=== PATIENT | female | born 1935 | race Hispanic/Latino ===

== ENCOUNTER → 2018-05-08 | Day surgery (SDC) | payer MEDICARE ==
[2018-05-02 16:47] LABS: BASOPHILS % 0.6 % (0.0-1.0); EOSINOPHILS # (AUTO) 0.2 (0.0-0.4); EOSINOPHILS % 2.8 % (0.0-6.0); HEMATOCRIT 40.6 % (34.2-44.1); LYMPHOCYTES # (AUTO) 2.4 (1.0-3.2); LYMPHOCYTES % 35.6 % (18.0-39.1); MEAN CORPUSCULAR HEMOGLOBIN 31.1 pg (28-32); MEAN CORPUSCULAR VOLUME 97.1 fL (81-99); MONOCYTES # (AUTO) 0.8 (0.2-0.8); MONOCYTES % 11.4 % (4.4-11.3); NEUTROPHILS # (AUTO) 3.4 (2.1-6.9); NEUTROPHILS % 49.5 % (38.7-80.0); PLATELET COUNT 245 x10e3/uL (140-360); RED BLOOD COUNT 4.18 x10e6/uL (3.6-5.1); RED CELL DISTRIBUTION WIDTH 13.5 % (11.7-14.4)
--- NOTE | 2018-05-02 16:55 | Diagnostic Imaging Report ---
PROCEDURE: X-RAY CHEST, TWO VIEWS COMPARISON: None. INDICATIONS: PREOP FOR FOOT FINDINGS: LUNGS: Diffusely hyperinflated. No mass or infiltrate. PLEURA: No effusions or pneumothorax. HEART \T\ MEDIASTINUM: Large hiatal hernia containing air. The heart is within normal size-limits. The aorta is ectatic with calcifications in the arch. BONES \T\ SOFT TISSUES: No acute findings. CONCLUSION: No acute thoracic abnormality. Large hiatal hernia. Dictated by: Danielle Stanley M.D. on 05/02/2018 at 17:01 Electronically approved by: Danielle Stanley M.D. on 05/02/2018 at 17:01
[~2018-05-08] MED LIST: ALENDRONATE SOD70 MG PO; BUPIVACAINE HCL 0.5% INJ 30 ML VIAL INJ ONE; CEFAZOLIN SOD 1 GM VIAL ONE; DEXAMETHASONE SOD PHOS INJ 4 MG/ML VIAL ONE; DIFLUCAN150 MG; ENALAPRIL; KETOROLAC TROMETHAMINE 30 MG/ML VIAL ONE; LEVOTHYROXINE; LEVOTHYROXINE50 MCG PO; LIDOCAINE HCL 2% LOCAL INJ 5 ML SDV VIAL INJ ONE; METOPROLOL SUCC25 MG PO; NEOSTIGMINE 1 MG/ML 10ML VIAL ONE; ONDANSETRON HCL INJ 2 MG/ML VIAL ONE; PROPOFOL IV EMULSION 10 MG/ML 20 ML VIAL ONE; SEVOFLURANE INHAL SOLN 250 ML PEN BTL ONE; SIMVASTATIN; SIMVASTATIN20 MG PO; VASOTEC10 M1 PO
--- NOTE | 2018-05-08 08:34 | Operative Report ---
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 POSTOPERATIVE DIAGNOSES 1. 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 2. 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 PROCEDURES 1. Excision of neuroma of 2nd interspace. 2. Application of human allograft to the remainder of the proximal aspect of the neuroma (stump neuroma) and hypertrophic tissue. COMPLICATIONS: None. CONDITION: Stable. ANESTHESIA: General. MATERIALS: Allograft, 2 x 2, reference [id number], lot [id number], September 24, 2019, is the expiration date. PROCEDURE IN DETAIL: Under mild sedation, the patient was brought to the operating table in the supine position. Following IV sedation, anesthesia was obtained by general anesthetic. At this point, the right foot was scrubbed, prepped and draped in the usual aseptic manner. The pneumatic thigh tourniquet was inflated to 350 mmHg. The leg was lowered to the table. Attention was then directed to the dorsal aspect of the right foot where an incision was made overlying the 2nd metatarsal space. The incision was deepened down to the level of the neuroma. After the intermetatarsal ligament was transected, the neuroma was visualized. It was then transected proximal medial, distal lateral, proximal lateral, distal through and through. It was passed from the operating table and sent for pathology. At this point, the area was then flushed with a copious amount of normal sterile saline solution. A 2 x 2 allograft wrap was then applied to the proximal aspect of the nerve in order to prevent stump neuroma to prevent adhesions to the area and chronic pain, and to help with the neuritis. The incisions were closed closing the deepest layer with 4-0 Vicryl and then 4-0 nylon. Injection was given of 10 mL of 0.5% Marcaine plain. Clean dressing was applied. Adaptic, 4 x 4's, Kerlix, and an Valerio bandage. Tourniquet was deflated. There was noted to be hyperemic response to all the digits. The patient tolerated the procedure and anesthesia well without complications. Was transferred to the recovery room with vital signs stable and vascular status intact to both feet. The patient will be discharged home when she meets criteria. She was given instructions to be nonweightbearing and to ice and elevate the foot while at rest. Follow up with me in the office, and to call the office for any questions or concerns, or any problems arise. Job#: [id number] MALINI
[2018-05-08 08:45] VITALS: BP 140/79
== END | disposition home or self-care (01) ==
LOC: OR 05:04
PROVIDERS: ATTEND Podiatrist Foot & Ankle Surgery
DX: G57.61 Lesion of plantar nerve, right lower limb (principal); I10 Essential (primary) hypertension; E03.9 Hypothyroidism, unspecified; Z01.810 Encounter for preprocedural cardiovascular examination; Z01.812 Encounter for preprocedural laboratory examination; Z01.818 Encounter for other preprocedural examination; Z86.73 Personal history of transient ischemic attack (TIA), and cerebral infarction without residual deficits; Z87.891 Personal history of nicotine dependence
CPT/HCPCS: 28080; 36415; 71046; 85025; 88304; 93005; J0690; J1100; J1885; J2001; J2405; J2710; Q4150

== ENCOUNTER → 2020-03-17 | Outpatient (CLI) | payer MEDICARE ==
[~2020-03-17] MED LIST changes: -BUPIVACAINE HCL 0.5% INJ 30 ML VIAL INJ ONE; -CEFAZOLIN SOD 1 GM VIAL ONE; -DEXAMETHASONE SOD PHOS INJ 4 MG/ML VIAL ONE; -KETOROLAC TROMETHAMINE 30 MG/ML VIAL ONE; -LIDOCAINE HCL 2% LOCAL INJ 5 ML SDV VIAL INJ ONE; -NEOSTIGMINE 1 MG/ML 10ML VIAL ONE; -ONDANSETRON HCL INJ 2 MG/ML VIAL ONE; -PROPOFOL IV EMULSION 10 MG/ML 20 ML VIAL ONE; -SEVOFLURANE INHAL SOLN 250 ML PEN BTL ONE
--- NOTE | 2020-03-17 15:35 | Diagnostic Imaging Report ---
EXAMINATION: CHEST 2 VIEWS INDICATION: Upper back pain COMPARISON: None FINDINGS: LINES/TUBES:None LUNGS:The lungs are well-inflated. No focal consolidation or pulmonary edema. PLEURA:No pleural effusion or pneumothorax. MEDIASTINUM:The cardiomediastinal silhouette appears normal in size and shape. Atherosclerotic calcifications of the thoracic aorta. Large hiatal hernia. BONES/SOFT TISSUES:No acute osseous injury. ABDOMEN:No free air under the diaphragm. IMPRESSION: No focal pneumonia or pulmonary edema. Large hiatal hernia. Signed by: Clare Burch MD on 03/17/2020 3:31 PM
--- NOTE | 2020-03-17 15:36 | Diagnostic Imaging Report ---
EXAMINATION: THORACIC SPINE 2VW INDICATION: Upper back pain COMPARISON: None FINDINGS: AP and lateral views of the thoracic spine demonstrate no acute fracture. Vertebral body heights are maintained. Mild multilevel degenerative changes with small osteophyte formation. The visualized portions of the lungs are clear. Large hiatal hernia. IMPRESSION: No compression fracture. Mild multilevel thoracic spine degenerative changes. Signed by: Clare Burch MD on 03/17/2020 3:33 PM
--- NOTE | 2020-03-17 15:45 | Diagnostic Imaging Report ---
EXAMINATION: SHOULDER LEFT COMPLETE INDICATION: Left shoulder pain COMPARISON: None FINDINGS: Internal and external rotation and Y view radiographs of the left shoulder demonstrate no acute fracture or dislocation. Alignment is anatomic. Mild acromioclavicular joint degenerative changes. The partially visualized left lung is clear. Atherosclerotic aortic calcifications. Soft tissues appear unremarkable. IMPRESSION: No acute osseous injury of the left shoulder. Signed by: Clare Burch MD on 03/17/2020 3:42 PM
== END ==
LOC: RAD 14:25
PROVIDERS: ATTEND Internal Medicine
DX: M54.6 Pain in thoracic spine (principal); M25.512 Pain in left shoulder
CPT/HCPCS: 71046; 72070

== ENCOUNTER 2020-07-01 14:07 | Observation (INO) | payer MEDICARE ==
[~2020-07-01] VITALS: Ht 157.5 cm; Wt 78.0 kg
[2020-07-01] MEDS ORDERED: ASPIRIN 81 MG CHEW TAB PO ONE (14:45)
--- NOTE | 2020-07-01 14:47 | Emergency Department Note ---
History of Present Illnes History of Present Illness Chief Complaint: General Medicine Complaints History of Present Illness This is a 84 year old female . 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 Any updates have been documented here. Past Medical History Recent Fever: No Clinical Suspicion of Infectio: No New/Unexplained Change in Ment: No Past Medical History: Hypertension, Hypothyroidism, Anemia Other Medical History: HIGH CHOLESTEROL Past Surgical History: Hysterectomy Other Surgery: knee repair ORIF of right arm Social History Smoking Cessation: Never Smoker Alcohol Use: None Any Illegal Drug Use: No TB Exposure/Symptoms: No Physically hurt or threatened: No Family History Family history of heart diseas: No Other Last Tetanus: UNKNOWN Any Pre-Existing Lines (PICC,: No Review of Systems Review of Systems Constitutional: Reports no symptoms EENTM: Reports no symptoms Cardiovascular: Reports no symptoms Respiratory: Reports no symptoms Gastrointestinal: Reports no symptoms Genitourinary: Reports no symptoms Musculoskeletal: Reports no symptoms, Reports back pain (upper back pain intermittent) Integumentary: Reports no symptoms Neurological: Reports no symptoms Psychological: Reports no symptoms Endocrine: Reports no symptoms Hematological/Lymphatic: Reports no symptoms Physical Exam Related Data Allergies: Coded Allergies: No Known Allergies (Unverified , 05/03/18) Triage Vital Signs Vital Signs Date Time Temp Pulse Resp B/P (MAP) Pulse Ox O2 Delivery O2 Flow Rate FiO2 07/01/20 14:32 98.0 77 18 158/75 98 Room Air Vital signs reviewed: Yes Physical Exam CONSTITUTIONAL Constitutional: Present well-developed, Present well-nourished HENT HENT: Present normocephalic, Present atraumatic, Present oropharynx clear/moist, Present nose normal HENT L/R: Present left ext ear normal, Present right ext ear normal EYES Eyes: Reports PERRL, Reports conjunctivae normal NECK Neck: Present ROM normal PULMONARY Pulmonary: Present effort normal, Present breath sounds normal; Absent respiratory distress, Absent rales, Absent rhonchi, Absent chest tenderness, Absent other CARDIOVASCULAR Cardiovascular: Present regular rhythm, Present heart sounds normal, Present capillary refill normal, Present normal rate GASTROINTESTINAL Abdominal: Present soft, Present nontender, Present bowel sounds normal GENITOURINARY Genitourinary: Present exam deferred SKIN Skin: Present warm, Present dry MUSCULOSKELETAL Musculoskeletal: Present ROM normal, Present other (c/o intemrittent upper back pain btw shuldr blades x 4 days ); Absent edema, Absent tenderness NEUROLOGICAL Neurological: Present alert, Present oriented x 3, Present no gross motor or sensory deficits PSYCHOLOGICAL Psychological: Present mood/affect normal, Present judgement normal Results Laboratory Laboratory Laboratory Tests Test 07/01/20 17:23 07/01/20 14:56 07/01/20 14:48 Urine Color Yellow (YELLOW) Urine Clarity Sl cloudy (CLEAR) Urine pH 6.5 (5 - 7) Urine Specific [place] 1.025 (1.010-1.025) Urine Protein Negative (NEGATIVE) Urine Glucose (UA) Negative (NEGATIVE) Urine Ketones Negative (NEGATIVE) Urine Blood Negative (NEGATIVE) Urine Nitrite Negative (NEGATIVE) Urine Bilirubin Negative (NEGATIVE) Urine Urobilinogen 0.2 mg/dL (0.2 - 1) Urine Leukocyte Esterase Small (NEGATIVE) Urine RBC None /HPF (0-5) Urine WBC 6-10 /HPF (0-5) Urine Epithelial Cells Few /LPF (NONE) Urine Bacteria Moderate /HPF (NONE) White Blood Count 6.76 x10e3/uL (4.8-10.8) Red Blood Count 3.57 x10e6/uL (3.6-5.1) Hemoglobin 10.8 g/dL (12.0-16.0) Hematocrit 36.5 % (34.2-44.1) Mean Corpuscular Volume 102.2 fL (81-99) Mean Corpuscular Hemoglobin 30.3 pg (28-32) Mean Corpuscular Hemoglobin Concent 29.6 g/dL (31-35) Red Cell Distribution Width 14.8 % (11.7-14.4) Platelet Count 336 x10e3/uL (140-360) Neutrophils (%) (Auto) 66.2 % (38.7-80.0) Lymphocytes (%) (Auto) 20.9 % (18.0-39.1) Monocytes (%) (Auto) 9.0 % (4.4-11.3) Eosinophils (%) (Auto) 2.8 % (0.0-6.0) Basophils (%) (Auto) 0.7 % (0.0-1.0) Neutrophils # (Auto) 4.5 (2.1-6.9) Lymphocytes # (Auto) 1.4 (1.0-3.2) Monocytes # (Auto) 0.6 (0.2-0.8) Eosinophils # (Auto) 0.2 (0.0-0.4) Basophils # (Auto) 0.1 (0.0-0.1) Absolute Immature Granulocyte (auto 0.03 x10e3/uL (0-0.1) Prothrombin Time 12.9 seconds (11.9-14.5) Prothromb Time International Ratio 0.93 Activated Partial Thromboplast Time 27.0 seconds (23.8-35.5) D-Dimer Quantitative (PE/DVT) 0.75 ug/mLFEU (0.00-0.45) Sodium Level 144 mmol/L (136-145) Potassium Level 4.2 mmol/L (3.5-5.1) Chloride Level 106 mmol/L (98-107) Carbon Dioxide Level 29 mmol/L (22-29) Anion Gap 13.2 mmol/L (8-16) Blood Urea Nitrogen 9 mg/dL (7-26) Creatinine 0.77 mg/dL (0.57-1.11) Estimat Glomerular Filtration Rate > 60 ML/MIN (60-) BUN/Creatinine Ratio 12 (6-25) Glucose Level 129 mg/dL (74-118) Calcium Level 8.8 mg/dL (8.4-10.2) Total Bilirubin 0.1 mg/dL (0.2-1.2) Aspartate Amino Transf (AST/SGOT) 25 IU/L (5-34) Alanine Aminotransferase (ALT/SGPT) 25 IU/L (0-55) Alkaline Phosphatase 48 IU/L (40-150) Creatine Kinase 36 IU/L (29-168) Creatine Kinase MB 0.80 ng/mL (0-5.0) Troponin I 0.006 ng/mL (0-0.300) B-Type Natriuretic Peptide 135.7 pg/mL (0-100) Total Protein 6.8 g/dL (6.5-8.1) Albumin 3.9 g/dL (3.5-5.0) Globulin 2.9 g/dL (2.3-3.5) Albumin/Globulin Ratio 1.3 (0.8-2.0) Lipase 15 U/L (8-78) Lab results reviewed: Yes Imaging Imaging results reviewed: Yes Impressions EXAM: CT Chest WITH contrast 07/01/2020 4:41 PM INDICATION: Chest pain and dyspnea concerning for pulmonary embolism. COMPARISON: Same day chest radiographs. TECHNIQUE: Chest was scanned utilizing a multidetector helical scanner from the lung apex through the level of the adrenal glands with administration of IV contrast. Coronal and sagittal reformations were obtained. Routine protocol was performed. IV CONTRAST: 100 mL of Omnipaque 300 COMPLICATIONS: None RADIATION DOSE: Total DLP: 456 mGy*cm Estimated effective dose: (DLP x 0.014 x size factor) mSv CTDIvol has been reviewed. It is below the limits set by the Radiation Protocol Committee (RPC). Dose modulation, iterative reconstruction, and/or weight based adjustment of the mA/kV was utilized to reduce the radiation dose to as low as reasonably achievable. FINDINGS: LINES/ TUBES: None. VASCULAR: There are no filling defects within the pulmonary arteries to the segmental level. The pulmonary trunk has normal caliber measuring 2.5 cm. The ascending and descending aorta have normal enhancement and caliber measuring 3.2 cm and 2.5 cm, respectively. There is mild atherosclerotic calcification of the thoracic aortic arch extending into his branch vessels. LUNGS, PLEURA AND AIRWAYS: Evaluation of the lungs is limited by respiratory motion artifact. However, no focal consolidation, pleural effusion or pneumothorax. There is bibasilar atelectasis. HEART AND MEDIASTINUM: The thyroid gland is normal. No mediastinal, hilar or axillary lymphadenopathy. The heart is normal in size. There is no pericardial effusion. There are mild atherosclerotic calcifications in the aorta and coronary arteries. There is a large paraesophageal hiatal hernia with air-fluid levels. UPPER ABDOMEN: Unremarkable. BONES: There are degenerative changes in the thoracic spine. SOFT TISSUES: Unremarkable. IMPRESSION: 1. No evidence of pulmonary embolism to segmental level. 2. No acute intrathoracic abnormality identified. 3. Large paraesophageal hiatal hernia with air-fluid levels. 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 presented to ed c/o pleuritic upper back pain intermittent x 4 days denies cp sob n/v/d bonner dizziness - seen by pcp today had d-dimer done [facility] pos finding sent to ed for eval - lungs cta no reproducible anterior chest pain or upper back pain on exam - plan lab ekg cxr Reassessment Reassessment spoke w/ Dr Silver will admit obs tele Assessment & Plan Final Impression: (1) Upper back pain (2) Pleuritic pain Depart Disposition: ADMITTED Last Vital Signs Date Time Temp Pulse Resp B/P (MAP) Pulse Ox O2 Delivery O2 Flow Rate FiO2 07/01/20 14:32 98.0 77 18 158/75 98 Room Air Home Meds Reported Medications Alendronate Sodium (ALENDRONATE SODIUM) 70 Mg Tablet, 70 MG PO WEEKLY 05/08/18 Metoprolol Succinate (METOPROLOL SUCCINATE) 25 Mg Tab.er.24h, 25 MG PO BID 05/02/18 Simvastatin (SIMVASTATIN) 20 Mg Tablet, 20 MG PO 2100, EA 04/05/15 Levothyroxine Sodium (LEVOTHYROXINE SODIUM) 50 Mcg Tablet, 75 MCG PO DAILY, #30 TAB 04/05/15 ERIC SALAS MD Jul 01, 2020 14:47
--- OUTSIDE RECORDS SUMMARY | 2020-07-01 15:20 | XMS REPORT | Continuity of Care Document ---
Author Author Formerly [facility] t Organization [facility] Address [address] [place] [address] Phone Unavailable Care Team Providers Care Supervisor Case Loading Name Role Phone RAVINDRA MARTIN Unavailable DALE MORILLO Attphyluc Unavailable Payers Payer Name Policy Type Policy Number Effective Date Expiration Date S ource Problems This patient has no known problems. Allergies, Adverse Reactions, Alerts Allergy Name Allergy Type Status Severity Reaction(s) Onset Date Inacti ve Date Treating Clinician Comments Source No Known Allergies DA Active U 2019-08-01 00:00:00 [facility] CODEINE DA Active U 2009-02-04 00:00:00 [facility] No Known Contrast Allergies DA Active U 2009-02-04 00:00: 00 [facility] No Known Food Allergies DA Active U 2009-02-04 00:00:00 [facility] No Known Other Allergies DA Active U 2009-02-04 00:00:00 [facility] codeine DA Active U 2009-01-19 00:00:00 [facility] Medications This patient has no known medications. Procedures This patient has no known procedures. Results Test Description Test Time Test Comments Results Result Comments Source D-DIMER 2020-07-01 13:37:00 Test Item D-DIMER (test code = DDIMER) 926.00 ng/mLFEU 0-500 HH Results called to DR.ANGELES Donohue V.[email or web address].[email or web address] 07/01/20 1337Critical results verified and read back by Nurse? YClinical Cut-off value for D-Dimer is 500 ng/mL FEU. Comment: The [employer] D-Dimer assay is intended for use asan aid in the diagnosis of venous thromboembolism (VTE)[deep vein thrombosis (DVT) or pulmonary embolism (PE)].The measurement of D-Dimer should not be used as an aid inthe diagnosis of VTE, in patient with: -Therapeutic dose anticoagulant therapy for >24 hours - Fibrinolytic therapy within previous 7 days -Trauma or surgery within previous 4 weeks -Disseminated malignancies -Aortic aneurysm -Sepsis, severe infections, pneumonia, severe skin infections -Liver cirrhosis - - XR CHEST 2 [id number] 12:10:[facility] 1935 Se [facility]: F [facility]: O St: REG Name: YASMINE RECINOS [facility] : 1935 Age/S: 84/F [address] [facility] Unit #: [id number] Loc: J[place]MY [place] [address] Phys: Undefined Provider Acct: [id number] Dis Date: Status: REG CLI PHONE #: [phone] Exam Date: 07/01/2020 1153 FAX #: [phone] Reason: R07.81 EXAMS: CPT CODE: [id number] XR CHEST 2 V 11215 HISTORY: R07.81. COMPARISON: CT chest from August 06, 2019 and chest x-ray from August 01, 2019. Location: [facility]. No acute infiltrates, effusion or congestion. Massive retrocardiac hiatal hernia with air-fluid level. Dependent changes. Cardiomegaly. DJD of the dorsal spine. IMPRESSION: No acute infiltrates, effusion or congestion. Massive retro cardiac hiatal hernia. at 1210 Reported and signed by: Estelle Naidu M.D. CC: Technologist: Lyndsey ZHOU(R) Trnscrd Date/Time/By: 07/01/2020 (7270) : By: [email or web address] Orig Print D/T: S: 07/01/2020 (5890) PAGE 1 Signed Report SHOULDER LEFT [id number] 15:41:00 [place] [address] Patient Name: YASMINE RECINOS I MR #: [id number] : 1935 Age/Sex: 84/F Req #: [id number] Adm Physician: Ordered by: RAVINDRA MARTIN MD Report #: [id number] Location: [facility] Room/Bed: Procedure: [id number] DX/SHOULDER LEFT COMPLETE Exam Date: 03/17/20 Exam Time: 1446 REPORT STATUS: Signed EXAMINATION: SHOULDER LEFT COMPLETE INDICATION: Left shoulder pain COMPARISON: None FINDINGS: Internal and external rotation and Y view radiog raphs of the left shoulder demonstrate no acute fracture or dislocation. Align ment is anatomic. Mild acromioclavicular joint degenerative changes. The parti ally visualized left lung is clear. Atherosclerotic aortic calcifications. Sof t tissues appear unremarkable. IMPRESSION: No acute osseous injury of the left shoulder. Signed by: Ephraim Echevarria MD on 03/17/2020 3:42 PM Dic tated By: EPHRAIM ECHEVARRIA MD 154 2 Transcribed By: DANIELLE on 03/17/20 1542 COPY TO: RAVINDRA MARTIN THORACIC SPINE [id number] 15:32:00 [place] [address] Patient Name: YASMINE RECINOS I MR #: [id number] : 1935 Age/Sex: 84/F Req #: [id number] Adm Physician: Ordered by: RAVINDRA MARTIN MD Report #: [id number] Location: [facility] Room/Bed: Procedure: [id number] DX/THORACIC SPINE 2VW Exam Date: 03/17/20 Exam Time: 1446 REPORT STATUS: Signed EXAMINATION: TH ORACIC SPINE 2VW INDICATION: Upper back pain COMPARISON: None FINDINGS: AP and lateral views of the thoracic spine demonstrate no a cute fracture. Vertebral body heights are maintained. Mild multilevel degenera tive changes with small osteophyte formation. The visualized portions of the l ungs are clear. Large hiatal hernia. IMPRESSION: No compression fractu re. Mild multilevel thoracic spine degenerative changes. Signed by: Ephraim Echevarria MD on 03/17/2020 3:33 PM Dictated By: EPHRAIM ECHEVARRIA MD Electronically Si gned By: EPHRAIM ECHEVARRIA MD on 03/17/20 1533 Transcribed By: DANIELLE on 03/17/20 153 3 COPY TO: RAVINDRA MARTIN MD CHEST 2 [id number] 15:30:00 [place] [address] Patient Name: YASMINE RECINOS I MR #: [id number] : 1935 Age/Sex: 84/F Req #: [id number] Adm Physician: Ordered by: RAVINDRA MARTIN MD R eport #: [id number] Location: [facility] Room /Bed: Procedure: [id number] DX/CHEST 2 V IEWS Exam Date: 03/17/20 Exam Time: 1446 REPORT STATUS: Signed EXAMINATION: CHEST 2 VIEWS INDICATION: Upper back pain COMPARISON: None FIND INGS: LINES/TUBES:None LUNGS:The lungs are well-inflated. No focal con solidation or pulmonary edema. PLEURA:No pleural effusion or pneumothorax. MEDIASTINUM:The cardiomediastinal silhouette appears normal in size and sha pe. Atherosclerotic calcifications of the thoracic aorta. Large hiatal hernia. BONES/SOFT TISSUES:No acute osseous injury. ABDOMEN:No free air under the diaphragm. IMPRESSION: No focal pneumonia or pulmonary edema. Large hiatal hernia. Signed by: Ephraim Echevarria MD on 03/17/2020 3:31 PM Dictated By: EPHRAIM ECHEVARRIA MD 153 Transcribed By: DANIELLE on 03/17/20 153 COPY TO: BETO MARTIN MD - CT CHEST W/O [id number] 10:19:00 Name: YASMINE RECINOS [facility] : 1935 Age/S: 84 / F [address] [place] [address] Bl Unit #: [id number] Loc: [place] [address] Phys: CedrickOsmaniriazleda [employer]ER Acct: [id number] Dis Date: Status: ADM IN PHONE #: [phone] Exam Date: 08/06/2019 08 FAX #: [phone] Reason: dyspnea EXAMS: CPT CODE: [id number] CT CHEST W/O CONTRAST 07387 PROCEDURE: CT CHEST WITHOUT CONTRAST INDICATION: Dyspnea COMPARISON: CXR 08/01/2019 TECHNIQUE: Noncontrasted helical imaging performed apices through the lung bases with multiplanar reconstructions. CT imaging performed at this location utilizes radiation dose optimization techniques which include one or more of the following: -Automated exposure control -Adjustment of the mA and/or kV according to patient size -Use of iterative reconstruction technique CT Radiation Dose DLP 261.30 mGy-cm LIMITATIONS: None. FINDINGS: LUNGS AND PLEURA: Partial compressive atelectasis of the lower lobes related to large hiatal hernia. There are a few bandlike opacities compatible with subsegmental atele ctasis or scarring. Calcified granuloma left upper lobe. There is a circ umscribed noncalcified nodule subpleural right middle lobe axial series 3 image 155, 4 mm diameter, compatible with benign finding. There are indis tinct subpleural reticular interstitial opacities bilateral lungs. No are as of honeycombing. No consolidation. The central airways are patent. No pleural abnormality. MEDIASTINUM: There is a large hiatal hernia containing majority of the gastric body. No evidence for obstructi on or inflammatory changes. The mediastinal contents are otherwise unrema rkable. No definite adenopathy. 1 cm level 4R paratracheal node borderli ne enlarged with visible fatty hilum. HEART: The cardiac deny mbers are unremarkable. Heavily calcified coronary arteries. No pericard ial effusion. VASCULAR STRUCTURES: Moderate atherosclerosis with s cattered calcified plaque thoracic aorta and branch vessels. No aneurysm. The superior vena cava is unremarkable. UPPER ABDOMEN: Riggins ited noncontrast survey of upper abdominal viscera is negative. MUSCULOSKELETAL: The skeleton is intact. PAGE 1 S igned Report (CONTINUED) Name: YASMINE RECINOS [facility] : 1935 Age/S: 84 / F [address] [place] [address] Blvd Unit #: [id number] Loc: JIMMY [place] [address] Phys: Kimberly Philip NP Acct: [id number] Dis Date: Status: ADM IN PHONE #: [phone] Exam Date: 08/06/2019 0811 FAX #: [phone] Reason: dyspnea EXAMS: CPT CODE: [id number] CT CHEST W/O CONTRAST 51065 <Continued> IMPRESSION: 1. Large hiatal hernia with partial compressive atelectasis of the lower lobes. 2. Mild subpleural interstitial opacities are nonspecific. Acute inflammation not excluded. No evidence for honeycombing. 3. Atherosclerosis. Heavily calcified coronary arteries. 4. Right middle lobe nodule, 4 mm diameter, configuration compatible with benign finding. In the absence of risk factors for malignancy, no routine follow-up required. If the patient has a history of smoking or other risk factor to increase their risk of malignancy, then a follow-up chest CT at 12 months is recommended. REFERENCE: Guidelines for Management of Incidental Pulmonary Nodules Detected on CT Images: From the Fleischner Society 2017. SL: TR-H at 1019 Reported and signed by: Will Chow M.D. CC: Candido Murguia MD; Ravindra Carbone MD; Kimberly Philip NP; Mal Ruiz MD Technologist:RT Melia(Gracie)(CT) CTDI: DLP: Trnscb Date/Time: 08/06/2019 (1019) [email or web address] Orig Print D/T: S: 08/06/2019 (1022) PAGE 2 Signed Report COMPREHENSIVE METABOLIC [id number] 07:33:00* Test Item Value Reference Range Interpretation Comments SODIUM (test code = NA) 136 mEq/L 134-147 N POTASSIUM (test code = K) 3.9 mEq/L 3.4-5.0 N CHLORIDE (test code = CL) 105 mEq/L 100-108 N CARBON DIOXIDE (test code = CO2) 26 mEq/L 21-33 N ANION GAP (test code = GAP) 9 0-20 N GLUCOSE (test code = GLU) 109 mg/dL 70-110 N BLOOD UREA NITROGEN (test code = BUN) 14 mg/dL 7-18 N GLOMERULAR FILTRATION RATE (test code = GFR) 68.7 70-80 L Units of measure = ml/min/1.73 m2 CREATININE (test code = CREAT) 0.8 mg/dL 0.6-1.3 N TOTAL PROTEIN (test code = PROT) 6.7 g/dL 6.4-8.2 N ALBUMIN (test code = ALB) 3.10 g/dL 3.4-5.0 L CALCIUM (test code = CA) 8.4 mg/dL 8.0-10.5 N BILIRUBIN TOTAL (test code = BILT) 0.7 MG/DL <1.5 N SGOT/AST (test code = AST) 12 IUnit/L 15-37 L SGPT/ALT (test code = ALT) 19 IUnit/L 15-65 N ALKALINE PHOSPHATASE TOTAL (test code = ALKP) 48 IUnit/L 20-125 N [id number] 07:33:00* Test Item Value Reference Range Interpretation Comments PHOSPHOROUS (test code = PHOS) 2.5 MG/DL 2.5-4.9 N [id number] 07:33:00* Test Item Value Reference Range Interpretation Comments MAGNESIUM (test code = MAG) 2.10 mg/dL 1.8-2.4 N CBC W/AUTO [id number] 07:23:00* Test Item Value Reference Range Interpretation Comments WHITE BLOOD CELL (test code = WBC) 9.26 x10 3/uL 4.5-11.0 N RED BLOOD CELL (test code = RBC) 4.33 x10 6/uL 3.54-5.02 N HEMOGLOBIN (test code = HGB) 10.1 g/dL 11.0-15.0 L HEMATOCRIT (test code = HCT) 34.0 % 33.0-45.0 N MEAN CELL VOLUME (test code = MCV) 78.5 fL 81.0-99.0 L MEAN CELL HGB (test code = MCH) 23.3 pg 27.0-33.0 L MEAN CELL HGB CONCETRATION (test code = MCHC) 29.7 g/dL 33.0-37. 0 L RED CELL DISTRIBUTION WIDTH CV (test code = RDW) 18.8 % 11.5- 14.5 H RED CELL DISTRIBUTION WIDTH SD (test code = RDW-SD) 53.5 fL 37 .0-54.0 N PLATELET COUNT (test code = PLT) 307 x10 3/uL 150-400 N MEAN PLATELET VOLUME (test code = MPV) 9.8 fL 7.0-9.0 H NEUTROPHIL % (test code = NT%) 68.6 % 56.0-77.0 N IMMATURE GRANULOCYTE % (test code = IG%) 0.6 % 0.0-2.0 N LYMPHOCYTE % (test code = LY%) 16.5 % 14.0-32.0 N MONOCYTE % (test code = MO%) 9.7 % 4.8-9.0 H EOSINOPHIL % (test code = EO%) 3.8 % 0.3-3.7 H BASOPHIL % (test code = BA%) 0.8 % 0.0-2.0 N NUCLEATED RBC % (test code = NRBC%) 0.2 % 0-0 H NEUTROPHIL # (test code = NT#) 6.35 x10 3/uL 2.0-7.6 N IMMATURE GRANULOCYTE # (test code = IG#) 0.06 x10 3/uL 0.00-0.03 H LYMPHOCYTE # (test code = LY#) 1.53 x10 3/uL 1.0-3.8 N MONOCYTE # (test code = MO#) 0.90 x10 3/uL 0.1-0.8 H EOSINOPHIL # (test code = EO#) 0.35 x10 3/uL 0.0-0.2 H BASOPHIL # (test code = BA#) 0.07 x10 3/uL 0.0-0.2 N NUCLEATED RBC # (test code = NRBC#) 0.02 x10 3/uL 0.0-0.1 N MANUAL DIFF REQUIRED (test code = MDIFF) NO CBC W/AUTO [id number] 18:33:00* Test Item Value Reference Range Interpretation Comments WHITE BLOOD CELL (test code = WBC) 10.36 x10 3/uL 4.5-11.0 N RED BLOOD CELL (test code = RBC) 3.78 x10 6/uL 3.54-5.02 N HEMOGLOBIN (test code = HGB) 8.7 g/dL 11.0-15.0 L HEMATOCRIT (test code = HCT) 30.6 % 33.0-45.0 L MEAN CELL VOLUME (test code = MCV) 81.0 fL 81.0-99.0 N MEAN CELL HGB (test code = MCH) 23.0 pg 27.0-33.0 L MEAN CELL HGB CONCETRATION (test code = MCHC) 28.4 g/dL 33.0-37. 0 L RED CELL DISTRIBUTION WIDTH CV (test code = RDW) 18.6 % 11.5- 14.5 H RED CELL DISTRIBUTION WIDTH SD (test code = RDW-SD) 56.0 fL 37 .0-54.0 H PLATELET COUNT (test code = PLT) 325 x10 3/uL 150-400 N MEAN PLATELET VOLUME (test code = MPV) 10.0 fL 7.0-9.0 H NEUTROPHIL % (test code = NT%) 67.5 % 56.0-77.0 N IMMATURE GRANULOCYTE % (test code = IG%) 0.7 % 0.0-2.0 N LYMPHOCYTE % (test code = LY%) 18.2 % 14.0-32.0 N MONOCYTE % (test code = MO%) 8.2 % 4.8-9.0 N EOSINOPHIL % (test code = EO%) 4.7 % 0.3-3.7 H BASOPHIL % (test code = BA%) 0.7 % 0.0-2.0 N NUCLEATED RBC % (test code = NRBC%) 0.2 % 0-0 H NEUTROPHIL # (test code = NT#) 6.99 x10 3/uL 2.0-7.6 N IMMATURE GRANULOCYTE # (test code = IG#) 0.07 x10 3/uL 0.00-0.03 H LYMPHOCYTE # (test code = LY#) 1.89 x10 3/uL 1.0-3.8 N MONOCYTE # (test code = MO#) 0.85 x10 3/uL 0.1-0.8 H EOSINOPHIL # (test code = EO#) 0.49 x10 3/uL 0.0-0.2 H BASOPHIL # (test code = BA#) 0.07 x10 3/uL 0.0-0.2 N NUCLEATED RBC # (test code = NRBC#) 0.02 x10 3/uL 0.0-0.1 N MANUAL DIFF REQUIRED (test code = MDIFF) NO - XR CHEST 2 [id number] 10:36:00 FAX: Candido Perez MD [phone] [facility]: St: PRE FAX: Ravindra Early [phone] Name: YASMINE RECINOS [facility] : 1935 Age/S: 84/F [address] [place] [address] Unit #: [id number] Loc: [place] [address] Phys: Candido Murguia MD Acct: [id number] Dis Date: Status: PRE SDC PHONE #: [phone] Exam Date: 08/01/2019 103 FAX #: [phone] Reason: PREOP LEFT HEART CATH EXAMS: CPT CODE: [id number] XR CHEST 2 V 48451 CLINICAL HISTORY: PREOP LEFT HEART CATH COMPARISON: NONE PA and lateral films of the chest demonstrate that heart size is normal. Lung bernstein are clear. No evidence of pneumonia or congestive failure is seen. There is no evidence of pleural effusion or pneumothorax. Regional skeletal structures demonstrate no acute abnormality. A large hiatus hernia with fluid level is present in the retrocardiac region. IMPRESSION: 1. No evidence of pneumonia or congestive failure is seen. 2. Large hiatus hernia. at 1036 Reported and signed by: Harish Kaiser M.D. CC: Candido Murguia MD; Ravindra Carbone MD Technologist: RT Michaela(Gracie) Trnscrd Date/Time/By: 08/01/2019 (1036) : By: Omar Orig Print D/T: S: 08/01/2019 (2964) PAGE 1 Signed Report BASIC METABOLIC [id number] 10:06:00* Test Item Value Reference Range Interpretation Comments SODIUM (test code = NA) 139 mEq/L 134-147 N POTASSIUM (test code = K) 4.0 mEq/L 3.4-5.0 N CHLORIDE (test code = CL) 108 mEq/L 100-108 N CARBON DIOXIDE (test code = CO2) 29 mEq/L 21-33 N ANION GAP (test code = GAP) 6 0-20 N GLUCOSE (test code = GLU) 83 mg/dL 70-110 N BLOOD UREA NITROGEN (test code = BUN) 18 mg/dL 7-18 N GLOMERULAR FILTRATION RATE (test code = GFR) 68.7 70-80 L Units of measure = ml/min/1.73 m2 CREATININE (test code = CREAT) 0.8 mg/dL 0.6-1.3 N CALCIUM (test code = CA) 8.5 mg/dL 8.0-10.5 N PROTHROMBIN [id number] 09:45:00* Test Item Value Reference Range Interpretation Comments PROTHROMBIN TIME PATIENT (test code = PTP) 12.0 SECONDS 9.3-12.9 N INTERNATIONAL NORMAL RATIO (test code = INR) 1.1 0.8-1.2 N TARGET INR BY INDICATION Indication INR1. Prophylaxis of venous thrombosis 2.0 - 3.0 (orthopedic surgery), Prophylaxis of venous thrombosis (other than high-risk surgery), Treatment of Deep Vein Thrombosis/Pulmonary Embolism, Prevention of systemic embolism - Tissue heart valves, Acute Myocardial Infarction (to prevent systemic embolism), Valvular heart disease, Atrial Fibrillation, Bileaflet mechanical valve in aortic position.2. Mechanical prosthetic valves (high risk), 2.5 - 3.5 Presence of Lupus Anticoagulant or Antiphospholipid Antibodies, Prevention of systemic embolism - Acute Myocardial Infarction (to prevent recurrent infarct). CBC W/AUTO [id number] 09:40:00* Test Item Value Reference Range Interpretation Comments WHITE BLOOD CELL (test code = WBC) 9.43 x10 3/uL 4.5-11.0 N RED BLOOD CELL (test code = RBC) 3.14 x10 6/uL 3.54-5.02 L HEMOGLOBIN (test code = HGB) 6.8 g/dL 11.0-15.0 L HEMATOCRIT (test code = HCT) 25.4 % 33.0-45.0 L MEAN CELL VOLUME (test code = MCV) 80.9 fL 81.0-99.0 L MEAN CELL HGB (test code = MCH) 21.7 pg 27.0-33.0 L MEAN CELL HGB CONCETRATION (test code = MCHC) 26.8 g/dL 33.0-37. 0 L RED CELL DISTRIBUTION WIDTH CV (test code = RDW) 19.2 % 11.5- 14.5 H RED CELL DISTRIBUTION WIDTH SD (test code = RDW-SD) 56.0 fL 37 .0-54.0 H PLATELET COUNT (test code = PLT) 326 x10 3/uL 150-400 N MEAN PLATELET VOLUME (test code = MPV) 9.9 fL 7.0-9.0 H NEUTROPHIL % (test code = NT%) 58.1 % 56.0-77.0 N IMMATURE GRANULOCYTE % (test code = IG%) 0.8 % 0.0-2.0 N LYMPHOCYTE % (test code = LY%) 26.6 % 14.0-32.0 N MONOCYTE % (test code = MO%) 10.9 % 4.8-9.0 H EOSINOPHIL % (test code = EO%) 3.0 % 0.3-3.7 N BASOPHIL % (test code = BA%) 0.6 % 0.0-2.0 N NUCLEATED RBC % (test code = NRBC%) 0.3 % 0-0 H NEUTROPHIL # (test code = NT#) 5.47 x10 3/uL 2.0-7.6 N IMMATURE GRANULOCYTE # (test code = IG#) 0.08 x10 3/uL 0.00-0.03 H LYMPHOCYTE # (test code = LY#) 2.51 x10 3/uL 1.0-3.8 N MONOCYTE # (test code = MO#) 1.03 x10 3/uL 0.1-0.8 H EOSINOPHIL # (test code = EO#) 0.28 x10 3/uL 0.0-0.2 H BASOPHIL # (test code = BA#) 0.06 x10 3/uL 0.0-0.2 N NUCLEATED RBC # (test code = NRBC#) 0.03 x10 3/uL 0.0-0.1 N MANUAL DIFF REQUIRED (test code = MDIFF) NO CHEST 2 [id number] 17:01:00 [facility] [address] [place] [address] Patient Name: YASMINE RECINOS I MR #: [id number] : 1935 Age/Sex: 82/F Req #: [id number] Adm Physician: Ordered by: DALE MORILLO DPM Report #: [id number] Location: OR Room/Bed: Procedure: [id number] DX/CHEST 2 VIEWS Exam Da te: 05/02/18 Exam Time: 1614 REPORT STATUS: Sig joseph PROCEDURE: X-RAY CHEST, TWO VIEWS COMPARISON: None. INDICATIONS: PREO P FOR FOOT FINDINGS: LUNGS: Diffusely hyperinflated. No mass or in filtrate. PLEURA: No effusions or pneumothorax. HEART T MEDI ASTINUM: Large hiatal hernia containing air. The heart is within normal size- limits. The aorta is ectatic with calcifications in the arch. BONES T SOFT TISSUES: No acute findings. CONCLUSION: No acute tho racic abnormality. Large hiatal hernia. Dictated by: Som Newman M.D. on 05/02/2018 at 17:01 Electronically approved by: Som Newman M.D. on 05/02/2018 at 17:01 Dictated By: SOM NEWMAN MD 00 Transcribed By: JO on 05/02/181700 COPY TO: DALE MORILLO DPM
[2020-07-01 15:32] LABS: BASOPHILS # (AUTO) 0.1 (0.0-0.1); BASOPHILS % 0.7 % (0.0-1.0); EOSINOPHILS # (AUTO) 0.2 (0.0-0.4); EOSINOPHILS % 2.8 % (0.0-6.0); HEMATOCRIT 36.5 % (34.2-44.1); HEMOGLOBIN 10.8 g/dL (12.0-16.0); LYMPHOCYTES # (AUTO) 1.4 (1.0-3.2); LYMPHOCYTES % 20.9 % (18.0-39.1); MEAN CORPUSCULAR HEMOGLOBIN 30.3 pg (28-32); MEAN CORPUSCULAR HGB CONC 29.6 g/dL (31-35); MEAN CORPUSCULAR VOLUME 102.2 fL (81-99); MONOCYTES # (AUTO) 0.6 (0.2-0.8); NEUTROPHILS # (AUTO) 4.5 (2.1-6.9); NEUTROPHILS % 66.2 % (38.7-80.0); PLATELET COUNT 336 x10e3/uL (140-360); RED BLOOD COUNT 3.57 x10e6/uL (3.6-5.1); RED CELL DISTRIBUTION WIDTH 14.8 % (11.7-14.4)
--- NOTE | 2020-07-01 15:34 | Diagnostic Imaging Report ---
TECHNIQUE: Frontal and lateral views of the chest. INDICATION: ^upper back pain ^[id number] ^1508 COMPARISON: 03/17/2020 IMPRESSION: Lines and hardware: Stable. Heart and mediastinum: Stable. Lungs and pleura: No focal airspace consolidation. No pleural effusion. No pneumothorax. Soft tissues and bones: No acute abnormality. Large hiatal hernia. Signed by: Emery Hastings MD on 07/01/2020 3:31 PM
[2020-07-01 15:36] LABS: INR 0.93; PROTHROMBIN TIME 12.9 seconds (11.9-14.5)
[2020-07-01 15:44] LABS: ALANINE AMINOTRANSFERASE 25 IU/L (0-55); ALBUMIN 3.9 g/dL (3.5-5.0); ALBUMIN/GLOBULIN RATIO 1.3 (0.8-2.0); ALKALINE PHOSPHATASE 48 IU/L (40-150); ANION GAP 13.2 mmol/L (8-16); BLOOD UREA NITROGEN 9 mg/dL (7-26); BUN/CREATININE RATIO 12 (6-25); CALCIUM 8.8 mg/dL (8.4-10.2); CARBON DIOXIDE 29 mmol/L (22-29); CHLORIDE 106 mmol/L (98-107); CREATINE KINASE 36 IU/L (29-168); CREATININE, SERUM 0.77 mg/dL (0.57-1.11); EST GLOMERULAR FILTRATION RATE > 60 ML/MIN (60-); GLUCOSE 129 mg/dL (74-118); LIPASE 15 U/L (8-78); POTASSIUM 4.2 mmol/L (3.5-5.1); SODIUM 144 mmol/L (136-145)
[2020-07-01 16:06] LABS: CLARITY,URINE SL CLOUDY (CLEAR); COLOR,URINE YELLOW (YELLOW); KETONES,URINE NEGATIVE (NEGATIVE); LEUKOCYTE ESTERASE ,URINE SMALL (NEGATIVE); NITRITE,URINE NEGATIVE (NEGATIVE); PROTEIN,URINE DIPSTICK NEGATIVE (NEGATIVE)
[2020-07-01 16:07] LABS: BILIRUBIN,URINE NEGATIVE (NEGATIVE); URINE UROBILINOGEN 0.2 mg/dL (0.2 - 1)
[2020-07-01 16:23] LABS: BACTERIA,URINE MODERATE /HPF; EPITHELIAL CELLS,URINE FEW /LPF
[2020-07-01] MEDS ORDERED: SODIUM CHLORIDE 0.9% 50ML 50 ML ONE (16:28)
[2020-07-01] MEDS ORDERED: IOPAMIDOL 370 MG/ML 200 ML INFUS..BTL INJ ONE (16:28)
[2020-07-01] MEDS ORDERED: ONDANSETRON HCL INJ 2MG/ML 2ML 2 MG/ML VIAL IV PRN (17:15)
[2020-07-01] MEDS ORDERED: MORPHINE SULFATE 2 MG/ML SYR 1ML IV PRN (17:15)
--- OUTSIDE RECORDS SUMMARY | 2020-07-01 17:31 | XMS REPORT | Continuity of Care Document ---
Author Author [facility] t Organization [facility] Address [address] [place] [address] Phone Unavailable Care Team Providers Care Lining Ironer Name Role Phone Keith SALAS ERIC Attphys Unavailable GRIDER-FAVIOLA, RAVINDRA Attphys Unavailable SHARMILA-NEWELL, DALE Attphys Unavailable Payers Payer Name Policy Type Policy Number Effective Date Expiration Date S ource Problems This patient has no known problems. Allergies, Adverse Reactions, Alerts Allergy Name Allergy Type Status Severity Reaction(s) Onset Date Inacti ve Date Treating Clinician Comments Source No Known Allergies DA Active U 2019-08-01 00:00:00 [facility] CODEINE DA Active U 2009-02-04 00:00:00 [facility] No Known Contrast Allergies DA Active U 2009-02-04 00:00: 00 [facility] No Known Food Allergies DA Active U 2009-02-04 00:00:00 [facility] No Known Other Allergies DA Active U 2009-02-04 00:00:00 [facility] codeine DA Active U 2009-01-19 00:00:00 [facility] Medications This patient has no known medications. Procedures This patient has no known procedures. Results Test Description Test Time Test Comments Results Result Comments Source CHEST 2 VIEWS 2020-07-01 15:29:00 [facility] : 1935 Sex: F [facility] [address] [address] Patient Name: YASMINE RECINOS I MR #: [id number] : 1935 Age/Sex: 84/F Req #: [id number] Adm Physician: Ordered by: ERIC SALAS MD Report #: [id number] Location: ER Room/Bed: Procedure: [id number] DX/CHEST 2 VIEWS Exam Date: 07/01/20 Exam Time: 1508 REPORT STATUS: Signed TECHNIQUE: Frontal and lateral views of the chest. INDICATION: upper back pain 20200701 COMPARISON: 03/17/2020 IMPRESSION: Lines and hardware: Stable. Heart and mediastinum: Stable. Lungs and pleura: No focal airspace consolidation. No pleural effusion. No pneumothorax. Soft tissues and bones: No acute abnormality. Large hiatal hernia. Signed by: Emery Garnett MD on 07/01/2020 3:31 PM Dictated By: EMERY GARNETT DO 30 Transcribed By: DANIELLE on 07/01/201530 COPY TO: ERIC SALAS MD D-DIMER 2020-07-01 13:37:00 Test Item D-DIMER (test code = DDIMER) 926.00 ng/mLFEU 0-500 HH Results called to DR.ANGELES Jayde [email or web address] 07/01/20 1337Critical results verified and read back [...] -Liver cirrhosis - - XR CHEST 2 [id number] 12:10:00 [facility])Name: YASMINE RECINOS : 1935 Se x: F [place]: O St: REG Name: YASMINE RECINOS [facility] : 1935 Age/S: 84/F [address] Unit #: [id number] Loc: [place] [address] Phys: Undefined Provider Acct: [id number] Dis Date: Status: REG CLI PHONE #: [phone] Exam Date: 07/01/2020 1158 FAX #: [phone] Reason: R07.81 EXAMS: CPT CODE: [id number] XR CHEST 2 V 34096 HISTORY: R07.81. COMPARISON: CT chest from August 06, 2019 and chest x-ray from August 01, 2019. Location: [facility]. No acute infiltrates, effusion or congestion. Massive retrocardiac hiatal hernia with air-fluid level. Dependent changes. Cardiomegaly. DJD of the dorsal spine. IMPRESSION: No acute infiltrates, effusion or congestion. Massive retro cardiac hiatal hernia. at 1210 Reported and signed by: Estelle Naidu M.D. CC: Technologist: Lyndsey ZHOU(Gracie) Trnscrd Date/Time/By: 07/01/2020 (1210) : By: [email or web address] Orig Print D/T: S: 07/01/2020 (5108) PAGE 1 Signed Report SHOULDER LEFT [id number] 15:41:[address] [address] Patient Name: YASMINE RECINOS I MR #: [id number] : 1935 Age/Sex: 84/F Req #: [id number] Adm Physician: Ordered by: RAVINDRA MARTIN MD Report #: [id number] Location: [facility] Room/Bed: Procedure: [id number] DX/SHOULDER LEFT COMPLETE Exam Date: 03/17/20 Exam [...] 1542 COPY TO: RAVINDRA MARTIN THORACIC SPINE [id number] 15:32:00 [address] [address] Patient Name: YASMINE RECINOS I MR #: [id number] : 1935 Age/Sex: 84/F Req #: [id number] Adm Physician: Ordered by: RAVINDRA MARTIN MD Report #: [id number] Location: [facility] Room/Bed: Procedure: [id number] DX/THORACIC SPINE 2VW Exam Date: 03/17/20 Exam [...] COPY TO: RAVINDRA MARTIN MD CHEST 2 [id number] 15:30:00 [facility] [address] [place] [address] Patient Name: YASMINE RECINOS I MR #: [id number] : 1935 Age/Sex: 84/F Req #: [id number] Adm Physician: Ordered by: RAVINDRA MARTIN MD R eport #: [id number] Location: [facility] Room /Bed: Procedure: [id number] DX/CHEST 2 V IEWS Exam Date: 03/17/20 [...] BETO MARTIN MD - CT CHEST W/O [id number] 10:19:00 Name: YASMINE RECINOS [facility] : 1935 Age/S: 84 / F [address] [place] [address] Unit #: [id number] Loc: [place] [address] Phys: Kimberly Philip [employer] TECHNICAL ADVISOR Acct: [id number] Dis Date: Status: ADM IN PHONE #: [phone] Exam Date: 08/06/2019 0811 FAX #: [phone] Reason: dyspnea EXAMS: CPT CODE: [id number] CT CHEST W/O CONTRAST 87377 PROCEDURE: CT CHEST WITHOUT CONTRAST INDICATION: Dyspnea [...] S igned Report (CONTINUED) [facility] 1935 Age[facility]S: 84 / F [address] [place] [address] Unit #: [id number] Loc: [place] [address] Phys: Kimberly Philip NP Acct: [id number] Dis Date: Status: ADM IN PHONE #: [phone] Exam Date: 08/06/2019 08 FAX #: [phone] Reason: dyspnea EXAMS: CPT CODE: [id number] CT CHEST W/O CONTRAST 23800 <Continued> IMPRESSION: 1. Large hiatal hernia with [...] Kimberly Philip NP; Mal Ruiz MD Technologist:RT Melia(R)(CT) CTDI: DLP: Trnscb Date/Time: 08/06/2019 (1019) [email or web address] Orig Print D/T: S: 08/06/2019 (1022) PAGE 2 Signed Report COMPREHENSIVE METABOLIC [id number] 07:33:00* Test Item Value Reference Range Interpretation [...] code = ALKP) 48 IUnit/L 20-125 N [id number] 07:33:00* Test Item Value Reference Range Interpretation Comments PHOSPHOROUS (test code = PHOS) 2.5 MG/DL 2.5-4.9 N [id number] 07:33:00* Test Item Value Reference Range Interpretation Comments MAGNESIUM (test code = MAG) 2.10 mg/dL 1.8-2.4 N CBC W/AUTO [id number] 07:23:00* Test Item Value Reference Range Interpretation [...] (test code = MDIFF) NO CBC W/AUTO [id number] 18:33:00* Test Item Value Reference Range Interpretation [...] = MDIFF) NO - XR CHEST 2 [id number] 10:36:00 FAX: Candido Perez MD [phone] [place]: St: PRE FAX: Ravindra Early [phone] Name: YASMINE RECINOS [facility] : 1935 Age/S: 84/F [address] [place] [address] Unit #: [id number] Loc: [place] [address] Phys: Candido Murguia MD Acct: [id number] Dis Date: Status: PRE SDC PHONE #: [phone] Exam Date: 08/01/2019 1031 FAX #: [phone] Reason: PREOP LEFT HEART CATH EXAMS: CPT CODE: [id number] XR CHEST 2 V 92925 CLINICAL HISTORY: PREOP LEFT HEART CATH COMPARISON: [...] Murguia MD; Ravindra Carbone MD Technologist: RT Michaela(R) Trnscrd Date/Time/By: 08/01/2019 (1036) : By: Omar Orig Print D/T: S: 08/01/2019 (4824) PAGE 1 Signed Report BASIC METABOLIC [id number] 10:06:00* Test Item Value Reference Range Interpretation [...] = CA) 8.5 mg/dL 8.0-10.5 N PROTHROMBIN [id number] 09:45:00* Test Item Value Reference Range Interpretation [...] Infarction (to prevent recurrent infarct). CBC W/AUTO [id number] 09:40:00* Test Item Value Reference Range Interpretation [...] (test code = MDIFF) NO CHEST 2 [id number] 17:01:00 [address] [address] Patient Name: YASMINE RECINOS I MR #: [id number] : 1935 Age/Sex: 82/F Req #: [id number] Adm Physician: Ordered by: DALE MORILLO DPM Report #: [id number] Location: OR Room/Bed: Procedure: [id number] DX/CHEST 2 VIEWS Exam Da te: 05/02/18 [...]
--- NOTE | 2020-07-01 17:32 | Diagnostic Imaging Report ---
EXAM: CT Chest WITH contrast 07/01/2020 4:41 PM INDICATION: Chest pain and dyspnea concerning for pulmonary embolism. COMPARISON: Same day chest radiographs. TECHNIQUE: Chest was scanned utilizing a multidetector helical scanner from the lung apex through the level of the adrenal glands with administration of IV contrast. Coronal and sagittal reformations were obtained. Routine protocol was performed. IV CONTRAST: 100 mL of Omnipaque 300 COMPLICATIONS: None RADIATION DOSE: Total DLP: 456 mGy*cm Estimated effective dose: (DLP x 0.014 x size factor) mSv CTDIvol has been reviewed. It is below the limits set by the Radiation Protocol Committee (RPC). Dose modulation, iterative reconstruction, and/or weight based adjustment of the mA/kV was utilized to reduce the radiation dose to as low as reasonably achievable. FINDINGS: LINES/ TUBES: None. VASCULAR: There are no filling defects within the pulmonary arteries to the segmental level. The pulmonary trunk has normal caliber measuring 2.5 cm. The ascending and descending aorta have normal enhancement and caliber measuring 3.2 cm and 2.5 cm, respectively. There is mild atherosclerotic calcification of the thoracic aortic arch extending into his branch vessels. LUNGS, PLEURA AND AIRWAYS: Evaluation of the lungs is limited by respiratory motion artifact. However, no focal consolidation, pleural effusion or pneumothorax. There is bibasilar atelectasis. HEART AND MEDIASTINUM: The thyroid gland is normal. No mediastinal, hilar or axillary lymphadenopathy. The heart is normal in size. There is no pericardial effusion. There are mild atherosclerotic calcifications in the aorta and coronary arteries. There is a large paraesophageal hiatal hernia with air-fluid levels. UPPER ABDOMEN: Unremarkable. BONES: There are degenerative changes in the thoracic spine. SOFT TISSUES: Unremarkable. IMPRESSION: 1. No evidence of pulmonary embolism to segmental level. 2. No acute intrathoracic abnormality identified. 3. Large paraesophageal hiatal hernia with air-fluid levels. Signed by: Patti Jennings MD on 07/01/2020 5:29 PM
--- NOTE | 2020-07-01 18:15 | NUR ---
Received patient via stretcher from ER. AAOX3 to time, person, place. Respirations even and unlabored. Tele #[phone] SR with 1st degree block 78. Oriented patient to room. Instructed to use call light for assistance. Voiced understanding
[2020-07-01] MEDS: PANTOPRAZOLE 40 MG 10ML VIAL IV SCH (18:39)
--- NOTE | 2020-07-01 19:18 | NUR ---
Report given to oncoming nurse of patient's status. Resting in bed. NO s/s of acute distress noted. Side rails upx2, call light within reach.
[2020-07-01 20:00] VITALS: BP 168/86
--- NOTE | 2020-07-01 20:28 | NUR ---
RECEVED PT IN STANDING INTHE ROOM ,DENIES PAIN RESPIRATIONS ARE EVEN AND UNLABORED ,PHYSICAL ASSESSMENT DONE ,OREINTED THE PT TO THE ROOM ,CALL LIGHT WITH IN-REACH ,CONTINUE TO MONITOR
[2020-07-01 20:37] LABS: CREATINE KINASE 35 IU/L (29-168)
[2020-07-01] MEDS: SIMVASTATIN 20 MG TAB PO SCH (21:00)
[2020-07-01 21:06] VITALS: BP 168/86
[2020-07-02] VITALS (9 sets, daily range): BP systolic 128–180; BP diastolic 75–113
[2020-07-02 05:44] LABS: BASOPHILS # (AUTO) 0.1 (0.0-0.1); BASOPHILS % 0.8 % (0.0-1.0); EOSINOPHILS # (AUTO) 0.2 (0.0-0.4); EOSINOPHILS % 2.9 % (0.0-6.0); HEMATOCRIT 33.8 % (34.2-44.1); HEMOGLOBIN 9.9 g/dL (12.0-16.0); LYMPHOCYTES # (AUTO) 1.4 (1.0-3.2); LYMPHOCYTES % 20.6 % (18.0-39.1); MEAN CORPUSCULAR HEMOGLOBIN 30.2 pg (28-32); MEAN CORPUSCULAR HGB CONC 29.3 g/dL (31-35); MONOCYTES # (AUTO) 0.7 (0.2-0.8); MONOCYTES % 11.3 % (4.4-11.3); NEUTROPHILS # (AUTO) 4.2 (2.1-6.9); NEUTROPHILS % 63.9 % (38.7-80.0); PLATELET COUNT 264 x10e3/uL (140-360); RED BLOOD COUNT 3.28 x10e6/uL (3.6-5.1); RED CELL DISTRIBUTION WIDTH 14.8 % (11.7-14.4)
[2020-07-02] MEDS: LEVOTHYROXINE SODIUM 75 MCG TAB PO SCH (06:06)
[2020-07-02 06:08] LABS: ALANINE AMINOTRANSFERASE 21 IU/L (0-55); ALBUMIN 3.4 g/dL (3.5-5.0); ALBUMIN/GLOBULIN RATIO 1.3 (0.8-2.0); ALKALINE PHOSPHATASE 39 IU/L (40-150); ANION GAP 11.4 mmol/L (8-16); BLOOD UREA NITROGEN 10 mg/dL (7-26); BUN/CREATININE RATIO 15 (6-25); CALCIUM 8.6 mg/dL (8.4-10.2); CARBON DIOXIDE 28 mmol/L (22-29); CHLORIDE 109 mmol/L (98-107); CHOL/HDL RATIO 2.6 (3.0-3.6); CHOLESTEROL 136 MD/DL (0-199); CREATININE, SERUM 0.68 mg/dL (0.57-1.11); EST GLOMERULAR FILTRATION RATE > 60 ML/MIN (60-); GLUCOSE 99 mg/dL (74-118); HDL CHOLESTEROL 53 MG/DL (40-60); LDL CHOLESTEROL 66 MG/DL (60-130); POTASSIUM 4.4 mmol/L (3.5-5.1); SODIUM 144 mmol/L (136-145); TRIGLYCERIDES 84 MG/DL (0-149)
--- NOTE | 2020-07-02 06:19 | NUR ---
PT RESTED DURING THE NIGHT ,DENIES PAIN .CONTINUE TO MONITOR
[2020-07-02 06:47] LABS: CREATINE KINASE MB 0.7 ng/mL (0-5.0)
--- NOTE | 2020-07-02 07:19 | NUR ---
BEDSIDE REPORT GIVEN TO THE ONCOMING NURSE
[2020-07-02] MEDS: PANTOPRAZOLE 40 MG 10ML VIAL IV SCH (08:11)
[2020-07-02] MEDS: METOPROLOL SUCCINATE 25 MG TAB XL PO SCH ×2 (08:11→17:47)
--- NOTE | 2020-07-02 08:40 | NUR ---
ASSESSMENT: Spiritual concern Pt worried about the country (COVID and upcoming election). Intervention: Provided hospitality and empathic listening. Facilitated identification of emotions. Provided prayer. Outcome: Pt expressed appreciation for visit. Will follow as able. MAR THORNTON Sales Operations Director Spiritual Care Department O: [phone]
--- NOTE | 2020-07-02 17:50 | Diagnostic Imaging Report ---
Hepatobiliary Scan with Gallbladder Ejection Fraction Reason for exam: Upper abdominal pain Report: Following intravenous administration of 6.5 millicuries of Tc-99m mebrofenin, dynamic images of the abdomen in the anterior projection were obtained through 37 minutes. Sincalide (CCK analog) 1.6 micrograms was administered intravenously over 30 minutes with additional imaging for determination of gallbladder ejection fraction. Perfusion to the liver is normal. Extraction of tracer from the blood pool by the liver parenchyma is normal. Tracer is seen promptly within the biliary tract. The gallbladder begins to fill by 21 minutes post-injection of tracer and fills adequately. Tracer is seen in the small bowel by 18 minutes. The gallbladder ejection fraction with administration of sincalide is 88% (normal greater than 40%). Impression: 1. Filling of the gallbladder excludes the diagnosis of acute cystic duct obstruction/acute cholecystitis. 2. Normal gallbladder ejection fraction of 88% does not support the clinical diagnosis of chronic cholecystitis/gallbladder dyskinesia. Signed by: Dr. Meghann Jones M.D. on 07/02/2020 5:47 PM
--- NOTE | 2020-07-02 19:18 | NUR ---
RECEIVED PT IN BED AOX3 .RESPIRATIONS ARE EVEN NAD UNLABORED .CALL LIGHT WITH IN REACH ,CONTINUE TO MONITORM
[2020-07-02] MEDS: SIMVASTATIN 20 MG TAB PO SCH (21:00)
[2020-07-02] MEDS ORDERED: ONDANSETRON HCL INJ 2MG/ML 2ML 2 MG/ML VIAL IV PRN (22:30)
--- NOTE | 2020-07-02 22:53 | Consultation ---
DATE OF CONSULTATION: 07/02/2020 REFERRING PHYSICIAN: Gray Silver M.D. REASON FOR CONSULT: Large paraesophageal hiatal hernia. HISTORY OF PRESENTING ILLNESS: An 84 years old very pleasant female, who got admitted with some pleuritic chest pain. She has had a D-dimer test done by her primary care physician. She was found to have D-dimer positive. Therefore she was referred to emergency room. Here she has had a CT angiogram of the chest that ruled out any pulmonary embolism. The CT chest incidentally also showed a large paraesophageal hernia. On further questioning the patient stated that she has reflux for which she takes Prilosec off and on. However, she completely denies any dysphagia, choking, coughing or food or liquid ever gets hung up in the lower esophagus. REVIEW OF SYSTEMS: Twelve point system reviewed symptomatology is limited as per HPI. PAST MEDICAL HISTORY: Hypertension, hypothyroidism, hyperlipidemia and chronic anemia. PAST SURGICAL HISTORY: Hysterectomy and knee repair. FAMILY HISTORY: Noncontributory given her advanced age. SOCIAL HISTORY: No smoking, alcohol, or any illicit drug use. ALLERGIES: NO KNOWN DRUG ALLERGIES. HOME MEDICATIONS: Alendronate, levothyroxine, metoprolol, and simvastatin. Inpatient medication list reviewed as per MAR. PHYSICAL EXAMINATION: VITAL SIGNS: Temperature 97.8, pulse 79, respirations 17, blood pressure 165/80 to 164/113, oxygen saturation 98% on room air. GENERAL: Elderly, but not in any acute distress. Mentally very sharp. HEENT: Moist mucous membranes. Anicteric sclerae. CVS: S1, S2 regular. LUNGS: Bilaterally grossly clear. Reproducible left anterior chest wall tenderness. ABDOMEN: Soft, nondistended, nontender. No palpable mass or hernia. Positive bowel sounds EXTREMITIES: Warm. No leg edema. LABORATORY DATA: WBC 6.54, hemoglobin 9.9, hematocrit 33.8, MCV 103.0, platelet count 264,000. Sodium 144, potassium 4.4, chloride 109, bicarb 28, BUN 10, creatinine 0.68, glucose 99. Liver enzymes showed a total bilirubin 0.1, AST 19, ALT 21, alkaline phosphatase 39. Liver enzymes normal. HIDA scan was done that showed filling of gallbladder exclude the diagnosis of acute cholecystitis. Ejection fraction is 88%. CT of the chest with PE protocol showed: 1. No evidence of pulmonary embolism to segmental level. 2. No acute intrathoracic abnormality identified. 3. Large paraesophageal hiatal hernia with air-fluid level. IMPRESSION: 1. Asymptomatic large paraesophageal hernia. 2. Gastroesophageal reflux disease. PLAN: From GI standpoint, continue PPI as needed. Since the patient is having asymptomatic hiatal hernia, given her age, we will recommend to continue to monitor her clinically. Outpatient workup with upper GI series and evaluation by cardiothoracic surgeon can be performed if the patient kind of complains about hiatal hernia symptoms such as choking, coughing, dysphagia or any episode of recurrent aspiration pneumonia. The patient can be discharged from GI standpoint. Spencer Rowe MD SA/VIKRAM /[id number]
[2020-07-03] VITALS: BP 110/57
[2020-07-03] MEDS: ACETAMINOPHEN 325 MG TAB PO PRN ×2 (01:15→03:54)
[2020-07-03 04:55] VITALS: BP 110/57
--- NOTE | 2020-07-03 05:30 | NUR ---
PT RESTED DURING THE NIGHT ,PT C/O LEFT SHOULDER AND GIVEN ORDERED PAIN MEDICATION,CALL LIGHT WITH IN REACH CONTINUE TO MONITOR
[2020-07-03] MEDS: LEVOTHYROXINE SODIUM 75 MCG TAB PO SCH (06:07)
--- NOTE | 2020-07-03 07:21 | NUR ---
TAYE REPORT GIVEN TO THE ONCOMING NURSE
[2020-07-03 08:00] VITALS: BP 137/85
[2020-07-03] MEDS: PANTOPRAZOLE 40 MG 10ML VIAL IV SCH (08:33)
[2020-07-03] MEDS: METOPROLOL SUCCINATE 25 MG TAB XL PO SCH (08:33)
[2020-07-03 09:06] VITALS: BP 145/75
--- NOTE | 2020-07-03 10:25 | Discharge Summary ---
PRIMARY CARE PHYSICIAN: Gemini Wong MD CONSULTANTS: Dr. Jose Angel Ackerman. CHIEF COMPLAINT: Pleuritic chest pain, left upper back pain with positive D-dimer of 0.75. Normal reference number is 0-0.45. HOSPITAL COURSE: The patient is an 84-year-old female came in asymptomatic other than that she had a positive D-dimer as an outpatient and then she also has some pleuritic pain in the upper back area more so on the left side and the patient had a CTA of the chest showed large hiatal hernia and a HIDA scan for the gallbladder was negative. The patient is stable. She is asymptomatic now. She is stable. The patient was seen by Gastroenterology, recommended follow up as an outpatient for an EGD at a later date. The patient is comfortable. She does take alendronate. I would like to hold off the patient's alendronate and continue to monitor. The patient will be going home with omeprazole 40 mg daily. Prescriptions given. She will resume her other usual home medication. I instructed the patient to follow up with Dr. Wong in approximately one week. Follow up with Gastroenterology in approximately 2-3 weeks. Resume home medication. Omeprazole 40 mg daily. Follow up sooner if needed. MD LISBET So/EMANIL /[id number]
--- NOTE | 2020-07-03 11:27 | NUR ---
Discharge education provided with discharge packet. Prescription given. Verbalized understanding regarding follow-up appointment with pcp and GI doctor. PIV to left AC removed, catheter tip intact, no bleeding noted. Transported to private vehicle via wheelchair with all personal belongings taken.
== END 2020-07-03 11:27 | disposition home or self-care (01) ==
LOC: ER 14:50 → ERHOLD 17:26 → MED/SURG2 18:03
PROVIDERS: ADMIT Internal Medicine; ATTEND Internal Medicine
DX: K44.9 Diaphragmatic hernia without obstruction or gangrene (principal); K21.9 Gastro-esophageal reflux disease without esophagitis; I10 Essential (primary) hypertension; E03.9 Hypothyroidism, unspecified; Z86.73 Personal history of transient ischemic attack (TIA), and cerebral infarction without residual deficits; Z11.59 Encounter for screening for other viral diseases
CPT/HCPCS: 36415 ×2; 71046; 71260; 78227; 80053 ×2; 80061; 81001; 82550 ×2; 82553 ×2; 83690; 83880; 84484 ×2; 85025 ×2; 85379; 85610; 85730; 93005; 99284; A9537; C9113 ×3; G0378 ×3; Q9967; U0002

== ENCOUNTER → 2021-06-10 | Outpatient (CLI) | payer MEDICARE | LOC: CARD 12:29 | PROVIDERS: ATTEND Internal Medicine | DX: I65.23 Occlusion and stenosis of bilateral carotid arteries (principal) | CPT/HCPCS: 93880 ==

== ENCOUNTER → 2024-07-03 | Day surgery (SDC) | payer MEDICARE ==
[2024-07-01 15:09] LABS: BASOPHILS # (AUTO) 0.1 (0.0-0.1); BASOPHILS % 0.6 % (0.0-1.0); EOSINOPHILS # (AUTO) 0.1 (0.0-0.4); HEMATOCRIT 44.8 % (34.2-44.1); LYMPHOCYTES # (AUTO) 2.1 (1.0-3.2); LYMPHOCYTES % 26.5 % (18.0-39.1); MEAN CORPUSCULAR HGB CONC 31.3 g/dL (31-35); MEAN CORPUSCULAR VOLUME 102.3 fL (81-99); MONOCYTES # (AUTO) 0.9 (0.2-0.8); MONOCYTES % 11.1 % (4.4-11.3); NEUTROPHILS # (AUTO) 4.8 (2.1-6.9); NEUTROPHILS % 60.4 % (38.7-80.0); PLATELET COUNT 233 x10e3/uL (140-360); RED BLOOD COUNT 4.38 x10e6/uL (3.6-5.1); RED CELL DISTRIBUTION WIDTH 13.7 % (11.7-14.4); WHITE BLOOD COUNT 7.96 x10e3/uL (4.8-10.8)
[~2024-07-03] MED LIST changes: +BRILINTA90 MG PO; +CALCIUM PO; +CRANBERRY200 MG PO; +EPHEDRINE SULFATE INJ 50 MG/ML VIAL ONE; +LIDOCAINE HCL 2% LOCAL INJ 5 ML SDV VIAL INJ ONE; +LOSARTAN POTASS50 MG PO; +MULTI-VITAMIN1 EACH PO; +OMEPRAZOLE40 MG PO; +PROBIOTIC PO; +PROPOFOL IV EMULSION 10 MG/ML 20 ML VIAL ONE; +PROPOFOL IV EMULSION 10 MG/ML 50 ML VIAL IV ONE; +PROPOFOL IV EMULSION 50 ML IV ONE; +VALACYCLOVIR500 MG PO; +VITAMIN D31250 MCG PO
[2024-07-03] MEDS: LACTATED RINGER'S 1,000 ML ONE (08:48)
[2024-07-03 11:41] VITALS: TEMP 97
[2024-07-03 12:02] VITALS: BP 133/79; PULSE 59; RESP 18; O2SAT 99
[2024-07-03 12:16] LABS: WBC,FECAL (FECAL LACTOFERRIN) NEGATIVE (NEGATIVE)
[2024-07-04 06:19] LABS: C-REACTIVE PROTEIN 2 mg/L (0-10)
[2024-07-06 09:13] LABS: ENDOMYSIAL ANTIBODIES, IGA Negative (Negative)
[2024-07-06 10:25] LABS: IMMUNOGLOBULIN A 204 mg/dL (64-422); TISSUE TRANSGLUTAMINASE IGA AB <2 U/mL (0-3)
== END | disposition home or self-care (01) ==
LOC: OR 08:06
PROVIDERS: ATTEND Internal Medicine Gastroenterology
DX: K52.832 Lymphocytic colitis (principal); D12.4 Benign neoplasm of descending colon; K56.609 Unspecified intestinal obstruction, unspecified as to partial versus complete obstruction; K57.30 Diverticulosis of large intestine without perforation or abscess without bleeding; K62.89 Other specified diseases of anus and rectum; I10 Essential (primary) hypertension; E78.5 Hyperlipidemia, unspecified; I25.10 Atherosclerotic heart disease of native coronary artery without angina pectoris; E03.9 Hypothyroidism, unspecified; Z01.812 Encounter for preprocedural laboratory examination; Z79.899 Other long term (current) drug therapy; Z95.5 Presence of coronary angioplasty implant and graft
CPT/HCPCS: 36415; 45380; 45385; 82784; 83516; 83630; 83993; 85025; 86140; 86256; 87045; 87177; 87324; 87328; 87449; J2003; J2704 ×2; J7121; 45378

== ENCOUNTER → 2025-03-12 | Outpatient (REF) | payer MEDICARE ==
[~2025-03-12] MED LIST changes: -EPHEDRINE SULFATE INJ 50 MG/ML VIAL ONE; -LIDOCAINE HCL 2% LOCAL INJ 5 ML SDV VIAL INJ ONE; -PROPOFOL IV EMULSION 10 MG/ML 20 ML VIAL ONE; -PROPOFOL IV EMULSION 10 MG/ML 50 ML VIAL IV ONE; -PROPOFOL IV EMULSION 50 ML IV ONE
== END ==
LOC: MAMMO 10:18
PROVIDERS: ATTEND Internal Medicine
DX: Z12.31 Encounter for screening mammogram for malignant neoplasm of breast (principal)
CPT/HCPCS: 77067